=== PATIENT | male | born 1980 | race Caucasian/White ===

== ENCOUNTER 2017-02-05 09:48 | Emergency (ER) | payer OTHER ==
[2017-02-05 10:42] LABS: BASO # 0.1 10_X3_uL (0.0-0.1); BASO % 0.4 % (0.2-1.2); EOS # 0.6 10_X3_uL (0.0-0.5); GRAN # 6.5 10_X3_uL (1.8-5.4); HEMATOCRIT 43.4 % (40-51); LYMPH # 3.2 10_X3_uL (1.3-3.6); LYMPH % 28.4 % (21.8-53.1); MEAN CORPUSCULAR HEMOGLOBIN 31.2 pg (27.0-33.0); MEAN CORPUSCULAR HGB CONC 34.6 g/dL (32.0-36.0); MEAN CORPUSCULAR VOLUME 90.2 fL (79-92); MEAN PLATELET VOLUME 10.5 fl (7.5-11.5); MONO # 0.9 10_X3_uL (0.3-0.8); MONO % 8.2 % (5.3-12.2); PLATELET COUNT 246 x10_3/uL (163-337); RED BLOOD COUNT 4.81 x10_6/uL (4.6-6.1); RED CELL DISTRIBUTION WIDTH 12.6 % (11.6-14.4); WHITE BLOOD COUNT 11.3 x10_3/uL (4.2-9.1)
[2017-02-05 10:58] LABS: ALBUMIN 4.2 gm/dL (3.4-5.0); ALKALINE PHOSPHATASE 18 U/L (50-136); ALT/SGPT 26 U/L (7.53-40.17); AMYLASE 47 U/L (15.62-74.58); AST/SGOT 23 U/L (6.66-35.34); BILIRUBIN,TOTAL 0.47 mg/dL (0.0-1.0); BLOOD UREA NITROGEN 10 mg/dL (7-18); CALCIUM 9.3 mg/dL (8.7-10.7); CARBON DIOXIDE 28 mmol/L (21-32); CREATININE 0.7 mg/dL (0.6-1.3); GLUCOSE,RANDOM 103 mg/dL (70-99); LIPASE 26 U/L (6.75-60.75); POTASSIUM 3.8 mmol/L (3.5-5.1); SODIUM 142 mmol/L (136-145); TOTAL PROTEIN 7.8 gm/dL (6.4-8.2)
[2017-02-05 11:20] LABS: URINE BILIRUBIN 1+ (NEGATIVE); URINE BLOOD NEGATIVE (NEGATIVE); URINE GLUCOSE (UA) NORMAL (NORMAL); URINE KETONE NEGATIVE (NEGATIVE); URINE LEUKOCYTE ESTERASE TRACE (NEGATIVE); URINE NITRATE NEGATIVE (NEGATIVE); URINE PROTEIN TRACE (NEGATIVE)
[2017-02-05 12:01] LABS: URINE RBC 0-5 /[HPF] (0-2); URINE WBC 0-5 /[HPF] (0-3)
[2017-02-05 12:02] LABS: URINE BACTERIA TRACE (NONE SEEN); URINE CALCIUM OXALATE CRYSTALS >10 /[HPF] (NONE SEEN); URINE MUCUS TRACE
[2017-02-07 10:24] LABS: HBS AG SCREEN Non Reactive (NR); HCV Reactive (NR)
== END 2017-02-05 12:35 | disposition home or self-care (01) ==
LOC: ER 09:48
PROVIDERS: Family Medicine
DX: R10.11 Right upper quadrant pain (principal); F17.210 Nicotine dependence, cigarettes, uncomplicated; M54.9 Dorsalgia, unspecified; Z86.19 Personal history of other infectious and parasitic diseases; F14.20 Cocaine dependence, uncomplicated; F11.20 Opioid dependence, uncomplicated; Z79.899 Other long term (current) drug therapy
CPT/HCPCS: 36415; 74150; 80053; 80074; 81001; 82150; 83690; 85025; 99284-25